=== PATIENT | female | born 1970 | race Caucasian/White ===

== ENCOUNTER 2016-12-27 14:13 | Emergency (ER) | payer SELFPAY ==
[~2016-12-27] VITALS: Ht 154.9 cm; Wt 64.0 kg
[2016-12-27 14:49] VITALS: BP 105/77
--- NOTE | 2016-12-27 15:10 | NUR ---
Patient transferred to bed 7 for further care. CLINICAL AIDE evaluating patient at bedside.
--- NOTE | 2016-12-27 15:15 | NUR ---
46/F presents to epigastci pain x5 days. Pt describes pain to mid abdomen, constant, sharp, 9/10 pain. Patient also c/o nausea, denies vomiting. Pt denies fever but c/o chills. Patient is AOX4, belgian speaking, ambulatory with steady gait. VSS.
--- NOTE | 2016-12-27 15:43 | NUR ---
Dr. Pringle evaluating patient at bedside.
[2016-12-27] MEDS ORDERED: traMADol 50 MG TAB PO ONE (15:50)
[2016-12-27] MEDS ORDERED: ONDANSETRON 4 MG ODT PO ONE (15:50)
--- NOTE | 2016-12-27 16:19 | NUR ---
Ultrasound at bedside.
--- NOTE | 2016-12-27 19:20 | NUR ---
Pt report given to Jannet WHITE. Transfer of care at this time.
[2016-12-27 20:07] VITALS: BP 122/78
--- NOTE | 2016-12-27 20:07 | NUR ---
Patient discharged with v/s stable. Written and verbal after care instructions given and explained. Patient alert, oriented and verbalized understanding of instructions. Ambulatory with steady gait. All questions addressed prior to discharge. ID band removed. Patient advised to follow up with PMD OR RETURN TO ER IF CONDITION WORSENS. Rx of OMEPRAZOLE given. Patient educated on indication of medication including possible reaction and side effects. Opportunity to ask questions provided and answered.
== END 2016-12-27 20:07 | disposition home or self-care (01) ==
LOC: MED 14:13
DX: R10.13 Epigastric pain (principal); R11.10 Vomiting, unspecified
CPT/HCPCS: 76705; 99284; Q0092; S0119

== ENCOUNTER 2018-10-10 14:33 | Emergency (ER) | payer MEDICAID ==
[~2018-10-10] VITALS: Ht 165.1 cm; Wt 69.4 kg
--- NOTE | 2018-10-10 14:44 | NUR ---
PT AMBULATES TO BED 9
[2018-10-10 14:45] VITALS: BP 150/81
--- NOTE | 2018-10-10 14:59 | NUR ---
PATIENT PRESENTS TO ED WITH c/o hacking cough, bodyaches, subjective f/c, fatigue x 4 days denies n/v/d---full clear speech, no accessory muscle use noted at this time.. DENIES N/V/D; SKIN IS PINK/WARM/DRY; AAOX4 WITH EVEN AND STEADY GAIT; LUNGS CLEAR BL; HR EVEN AND REGULAR; ; PATIENT STATES PAIN OF 0/10 AT THIS TIME; VSS; PATIENT POSITIONED FOR COMFORT; HOB ELEVATED; BEDRAILS UP X2; BED DOWN. ER MD MADE AWARE OF PT STATUS.
[2018-10-10] MEDS ORDERED: cefTRIAXone 1,000 MG in LIDOCAINE 1% ***ER ONLY *** 2.1 ML IM ONE (15:15)
[2018-10-10] MEDS ORDERED: DEXAMETHASONE 10 MG/ML VIAL IM ONE (15:15)
[2018-10-10] MEDS ORDERED: ALBUTEROL SULFATE/IPRATROPIU 3 ML SOL IH ONE (15:15)
--- NOTE | 2018-10-10 15:24 | NUR ---
RT AT BEDSIDE FOR TX.
[2018-10-10] MEDS ORDERED: cefTRIAXone 1,000 MG VIAL ONE (16:00)
[2018-10-10] MEDS ORDERED: LIDOCAINE MPF 1% - 5 mL VIAL 5 ML ONE (16:01)
[2018-10-10 16:30] VITALS: BP 159/70
--- NOTE | 2018-10-10 16:31 | NUR ---
Patient discharged with v/s stable. Written and verbal after care instructions given and explained. Patient alert, oriented and verbalized understanding of instructions. Ambulatory with steady gait. All questions addressed prior to discharge. ID band removed. Patient advised to follow up with PMD. Rx of AZITHROMYCIN/PREDNISONE/PREMETHAZINE given. Patient educated on indication of medication including possible reaction and side effects. Opportunity to ask questions provided and answered.
== END 2018-10-10 16:31 | disposition home or self-care (01) ==
LOC: MED 14:33
DX: J40 Bronchitis, not specified as acute or chronic (principal)
CPT/HCPCS: 94640; 96372; 99283; J0696; J1100; J2001; J7620

== ENCOUNTER 2020-03-24 09:47 | Emergency (ER) | payer MEDICAID ==
[~2020-03-24] VITALS: Ht 160 cm; Wt 74.4 kg
[2020-03-24 09:50] VITALS: BP 135/80
--- NOTE | 2020-03-24 10:01 | NUR ---
49 Y/O FEMALE PRESENTS WITH PRURITIS + RASH ON ABDOMEN AND BUE SINCE FRIDAY. AIRWAY/BREATHING REMAINS UNOBSTRUCTED. PT DENIES INGESTING ANY NEW MEDICATION OR FOOD. RESP EVEN AND UNLABORED. LUNG SOUNDS CLEAR IN BILAT LOBES. SKIN INTACT. NO FACIAL SWELLING NOTED. NO PMH NKA
[2020-03-24 10:10] VITALS: BP 135/80
--- NOTE | 2020-03-24 10:10 | NUR ---
Patient discharged with v/s stable. Written and verbal after care instructions given and explained. Patient alert, oriented and verbalized understanding of instructions. Ambulatory with steady gait. All questions addressed prior to discharge. ID band removed. Patient advised to follow up with PMD. Rx of BENADRYL, PREDNISONE given. Patient educated on indication of medication including possible reaction and side effects. Opportunity to ask questions provided and answered.
== END 2020-03-24 10:16 | disposition home or self-care (01) ==
LOC: MED 09:47
DX: R21 Rash and other nonspecific skin eruption (principal); Z98.890 Other specified postprocedural states
CPT/HCPCS: 99283

== ENCOUNTER 2022-09-01 14:39 | Emergency (ER) | payer MEDICAID ==
[~2022-09-01] VITALS: Ht 157.5 cm; Wt 64.0 kg
[2022-09-01 15:04] VITALS: BP 110/67
[2022-09-01] MEDS ORDERED: ACETAMINOPHEN EXTRA STRENGTH 500 MG TAB PO ONE (15:10)
[2022-09-01] MEDS ORDERED: ACETAMINOPHEN EXTRA STRENGTH 500 MG TAB ONE (15:10)
--- NOTE | 2022-09-01 15:15 | NUR ---
BIB SELF C/O FEVER,COUGH, AVILES X 2 DAYS ORAL TEMP 101.4 AT THIS TIME.
--- NOTE | 2022-09-01 18:13 | NUR ---
O2 SAT 99& AT THIS TIME.
[2022-09-01] MEDS ORDERED: NIRM1TAB5 PO (18:22)
[2022-09-01] MEDS ORDERED: BENZ200C4 PO (18:22)
[2022-09-01] MEDS ORDERED: IBUP-1842 PO (18:22)
[2022-09-01] MEDS ORDERED: TAM75 PO (18:22)
== END 2022-09-01 18:30 | disposition home or self-care (01) ==
LOC: MED 14:39
DX: U07.1 COVID-19 (principal); J11.1 Influenza due to unidentified influenza virus with other respiratory manifestations; R11.2 Nausea with vomiting, unspecified; Z79.899 Other long term (current) drug therapy; Z98.890 Other specified postprocedural states
CPT/HCPCS: 71045; 99284

== ENCOUNTER 2023-06-24 17:11 | Emergency (ER) | payer MEDICAID, OTHER ==
[~2023-06-24] VITALS: Ht 147.3 cm; Wt 61.4 kg
[~2023-06-24 17:11] MED LIST: BENZ200C4 PO; IBUP-1842 PO; NIRM1TAB5 PO; TAM75 PO
[2023-06-24 17:28] VITALS: BP 133/67; PULSE 61; RESP 20; TEMP 97.7; O2SAT 99
[2023-06-24] MEDS ORDERED: KETOROLAC 30 MG/ML VIAL IM ONE (19:05)
[2023-06-24] MEDS ORDERED: HYDROcodone/APAP 5/325 MG 1 TAB TAB PO ONE (19:05)
[2023-06-24] MEDS ORDERED: IBUP-2213 PO (21:05)
[2023-06-24] MEDS ORDERED: ACET-8905 PO (21:05)
[2023-06-24] MEDS ORDERED: LID5T TP (21:05)
== END 2023-06-24 21:22 | disposition home or self-care (01) ==
LOC: MED 17:11
DX: S39.012A Strain of muscle, fascia and tendon of lower back, initial encounter (principal); Z79.899 Other long term (current) drug therapy; X58.XXXA Exposure to other specified factors, initial encounter; Y93.89 Activity, other specified; Y92.89 Other specified places as the place of occurrence of the external cause; Y99.8 Other external cause status
CPT/HCPCS: 72100; 73502; 96372; 99284; J1885; 81002

== ENCOUNTER 2023-12-13 02:12 | Emergency (ER) | payer OTHER ==
[~2023-12-13] VITALS: Ht 152.4 cm; Wt 63.0 kg
[~2023-12-13 02:12] MED LIST changes: +ACET-8905 PO; +IBUP-2213 PO; +LID5T TP
[2023-12-13 02:40] VITALS: BP 140/72; PULSE 63; RESP 18; TEMP 98; O2SAT 98
[2023-12-13 07:39] LABS: BASOPHILS # (AUTO) 0.1 K/uL (0.00-0.22); BASOPHILS % (AUTO) 0.9 % (0.0-2.0); EOSINOPHILS # (AUTO) 0.3 K/uL (0-0.4); EOSINOPHILS % (AUTO) 4.4 % (0.0-4.0); HEMATOCRIT 38.6 % (36-48); HEMOGLOBIN 12.8 g/dL (12.0-16.0); LYMPHOCYTES # (AUTO) 1.3 K/uL (2.5-16.5); LYMPHOCYTES % (AUTO) 18.5 % (20.5-51.1); MEAN CORPUSCULAR HEMOGLOBIN 30 pg (27-31); MEAN CORPUSCULAR HGB CONC 33 g/dL (33-37); MONOCYTES # (AUTO) 0.5 K/uL (0.8-1.0); MONOCYTES % (AUTO) 7.7 % (1.7-9.3); NEUTROPHILS # (AUTO) 4.6 K/uL (1.8-7.7); NEUTROPHILS % (AUTO) 68.5 % (42.2-75.2); PLATELET COUNT (AUTO) 331 K/uL (140-450); RED BLOOD CELL COUNT(AUTO) 4.34 MIL/uL (4.20-5.40); WHITE BLOOD COUNT (AUTO) 6.8 K/uL (4.8-10.8)
[2023-12-13 07:46] LABS: ANION GAP 9.7 (8-16); CALCIUM 8.4 mg/dL (8.5-10.1); CARBON DIOXIDE 26.9 mmol/L (21-32); CREATININE 0.7 mg/dL (0.6-1.3); POTASSIUM 3.6 mmol/L (3.5-5.1)
[2023-12-13] MEDS: ACETAMINOPHEN EXTRA STRENGTH 500 MG TAB PO ONE (08:05)
[2023-12-13] MEDS: KETOROLAC 30 MG/ML VIAL IM ONE (08:06)
[2023-12-13 09:50] VITALS: BP 132/80; PULSE 63; RESP 18; TEMP 98; O2SAT 98
== END 2023-12-13 09:50 | disposition home or self-care (01) ==
LOC: MED 02:12
DX: S13.8XXA Sprain of joints and ligaments of other parts of neck, initial encounter (principal); R51.9 Headache, unspecified; Z79.899 Other long term (current) drug therapy; X58.XXXA Exposure to other specified factors, initial encounter; Y93.89 Activity, other specified; Y92.89 Other specified places as the place of occurrence of the external cause; Y99.8 Other external cause status
CPT/HCPCS: 36415; 70450; 71045; 80048; 84484; 85025; 96372; 99285; J1885; Q0092; 93005